=== PATIENT | female | born 1990 | race Caucasian/White ===

== ENCOUNTER 2016-12-27 10:43 | Emergency (ER) | payer MEDICAID ==
[~2016-12-27] VITALS: Ht 160 cm; Wt 107.0 kg
[2016-12-27 10:48] VITALS: BP 115/50; PULSE 86; RESP 16; TEMP 97.6; O2SAT 97
--- NOTE | 2016-12-27 10:48 | NUR ---
Pt placed to ER bed 05 and report received from TIFFANY Mauricio. Pt s/p mechanical fall on Wednesday. Pt states while jumping in the air, she fell and landed on her left calf hitting small rocks. No bruising, no swelling, no trauma to site. Pt ambulates without difficulty.
--- NOTE | 2016-12-27 11:00 | NUR ---
DR. SCHERER AT BEDSIDE EXAMINING THE PT.
--- NOTE | 2016-12-27 11:00 | NUR ---
PT. TO BED 5 ASSUMED PT. CARE
[2016-12-27 13:00] VITALS: BP 111/61; PULSE 81; RESP 16; TEMP 98; O2SAT 97
--- NOTE | 2016-12-27 13:00 | NUR ---
Patient given written and verbal discharge instructions and verbalizes understanding. ER MD DR. SCHERER discussed with patient the results and treatment provided. Patient in stable condition. ID arm band removed. Rx of IBUPROFEN given. Patient educated on pain management and to follow up with PMD. Pain Scale 0/10 Opportunity for questions provided and answered.
== END 2016-12-27 13:00 | disposition home or self-care (01) ==
LOC: SED 10:43
DX: S93.402A Sprain of unspecified ligament of left ankle, initial encounter (principal); S80.12XA Contusion of left lower leg, initial encounter; X50.1XXA Overexertion from prolonged static or awkward postures, initial encounter; Y93.01 Activity, walking, marching and hiking; Y99.8 Other external cause status; Y92.89 Other specified places as the place of occurrence of the external cause
CPT/HCPCS: 73590-TC; 99284

== ENCOUNTER 2017-03-03 15:44 | Emergency (ER) | payer MEDICAID ==
[~2017-03-03] VITALS: Ht 160 cm; Wt 102.1 kg
[2017-03-03 15:48] VITALS: BP_SYST 107
[2017-03-03] MEDS ORDERED: PENICILLIN G BENZATHINE 1.2 MMU/2 ML SYR IM ONE (16:00)
--- NOTE | 2017-03-03 16:00 | NUR ---
Patient to [facility] for evaluation. Side rails up. Report given to TIFFANY Samayoa
--- NOTE | 2017-03-03 16:05 | NUR ---
Patient reports that she has been having a sore throat with body aches starting today 03/29. Denies N/V. Patient is stable, no labored breathing, vital signs stable. No other complaints/injuries per patient or as noted.
--- NOTE | 2017-03-03 16:07 | NUR ---
TOÑO Galeas at bedside.
[2017-03-03] MEDS ORDERED: KETOROLAC TROMETHAMINE 60 MG/2 ML VIAL IM ONE (16:15)
[2017-03-03 17:10] VITALS: BP_SYST 107
--- NOTE | 2017-03-03 17:10 | NUR ---
Patient given written and verbal discharge instructions and verbalizes understanding. ER MD discussed with patient the results and treatment provided. Patient in stable condition. ID arm band removed. Rx of Prednison and motrin given. Patient educated on pain management and to follow up with PMD in 2 days. Pain Scale 0/10 Opportunity for questions provided and answered.
== END 2017-03-03 17:10 | disposition home or self-care (01) ==
LOC: SED 15:44
DX: J20.9 Acute bronchitis, unspecified (principal)
CPT/HCPCS: 96372; 99284; J0561; J1885

== ENCOUNTER 2017-03-31 23:02 | Emergency (ER) | payer MEDICAID ==
[~2017-03-31] VITALS: Ht 160 cm; Wt 98.9 kg
[2017-03-31 23:33] VITALS: BP_SYST 105
== END 2017-04-01 00:38 | disposition left against medical advice (07) ==
LOC: SED 23:02
DX: M25.572 Pain in left ankle and joints of left foot (principal); Z53.21 Procedure and treatment not carried out due to patient leaving prior to being seen by health care provider